=== PATIENT | female | born 1950 | race Caucasian/White ===

== ENCOUNTER → 2017-06-30 | Outpatient (CLI) | payer MEDICARE ==
--- NOTE | 2017-07-02 09:20 | MM ---
Reason for exam: screening (asymptomatic). Last mammogram was performed 2 years and 1 month ago. History: Patient is postmenopausal. Family history of breast cancer in mother at age 73. Physical Findings: A clinical breast exam by your physician is recommended on an annual basis and results should be correlated with mammographic findings. MG Screening Mammo w CAD Bilateral CC and MLO view(s) were taken. Prior study comparison: May 17, 2015, bilateral MG screening mammo w CAD. March 23, 2014, bilateral MG screening mammo w CAD. The breast tissue is heterogeneously dense. This may lower the sensitivity of mammography. No suspicious abnormality in the left breast. There is a 5.5mm asymmetry 4cm from nipple with the medial right breast at middle depth. ASSESSMENT: Incomplete: need additional imaging evaluation, BI-RAD 0 RECOMMENDATION: Special view mammogram of the right breast. If lesion persists on supplemental views, image directed ultrasound is recommended. [facility] will attempt to contact patient to return for supplemental views and ultrasound if indicated.
== END | disposition home or self-care (01) ==
LOC: RADMAMWWP 15:43
PROVIDERS: ATTEND Family Medicine
DX: Z12.31 Encounter for screening mammogram for malignant neoplasm of breast (principal)

== ENCOUNTER → 2017-07-07 | Outpatient (CLI) | payer MEDICARE ==
--- NOTE | 2017-07-07 11:03 | MM ---
Reason for exam: additional evaluation requested from abnormal screening. Last mammogram was performed less than 1 month ago. History: Patient is postmenopausal. Family history of breast cancer in mother at age 73. Physical Findings: Nurse did not find any significant physical abnormalities on exam. MG 3D Work Up W/Cad RT LM and spot compression CC view(s) were taken of the right breast. Prior study comparison: June 30, 2017, bilateral MG screening mammo w CAD. May 17, 2015, bilateral MG screening mammo w CAD. March 23, 2014, bilateral MG screening mammo w CAD. There are scattered fibroglandular densities. The questioned medial asymmetry disperses on 3D spot view. These results were verbally communicated with the patient and result sheet given to the patient on 07/07/17. ASSESSMENT: Negative, BI-RAD 1 RECOMMENDATION: Routine screening mammogram of both breasts in 1 year.
== END | disposition home or self-care (01) ==
LOC: RADMAMWWP 10:18
PROVIDERS: ATTEND Family Medicine
DX: R92.8 Other abnormal and inconclusive findings on diagnostic imaging of breast (principal)
CPT/HCPCS: G0206; G0279

== ENCOUNTER → 2018-07-16 | Outpatient (CLI) | payer MEDICARE ==
--- NOTE | 2018-07-17 09:43 | MM ---
Reason for exam: screening (asymptomatic). Last mammogram was performed 1 year ago. History: Patient is postmenopausal. Family history of breast cancer in mother at age 73. Physical Findings: A clinical breast exam by your physician is recommended on an annual basis and results should be correlated with mammographic findings. MG 3D Screening Mammo W/Cad Bilateral CC and MLO view(s) were taken. Prior study comparison: July 07, 2017, right breast MG 3d work up w/cad RT. June 30, 2017, bilateral MG screening mammo w CAD. The breast tissue is heterogeneously dense. This may lower the sensitivity of mammography. No suspicious abnormality. No significant changes when compared with prior studies. ASSESSMENT: Negative, BI-RAD 1 RECOMMENDATION: Routine screening mammogram of both breasts in 1 year.
== END | disposition home or self-care (01) ==
LOC: RADMAMWWP 16:22
PROVIDERS: ATTEND Family Medicine
DX: Z12.31 Encounter for screening mammogram for malignant neoplasm of breast (principal)
CPT/HCPCS: 77063; 77067

== ENCOUNTER → 2019-07-21 | Outpatient (CLI) | payer MEDICARE ==
--- NOTE | 2019-07-21 12:35 | BD ---
EXAMINATION TYPE: Axial Bone Density DATE OF EXAM: 07/21/2019 COMPARISON: 2011 CLINICAL HISTORY: Z 78.0 Height: 5 FT 1 1/4 IN Weight: 110 FRAX RISK QUESTIONS: Alcohol (3 or more units per day): NO Family History (Parent hip fracture): NO Glucocorticoids (More than 3mos): NO (Ex: prednisone, prednisolone, methylprednisolone, dexamethasone, and hydrocortisone). History of Fracture in Adulthood: NO Secondary Osteoporosis: 1. Type 1 Diabetes: NO 2. Hyperthyroidism: NO 3. Menopause before 45: NO 4. Malnutrition: NO 5. Chronic liver disease: NO Rheumatoid Arthritis: NO Current Tobacco Use: NO RISK FACTORS HISTORY OF: Active: YES Postmenopausal woman: AGE 53 MEDICATIONS: Thyroid Medications: YES Which medication: LEVOTHYROXINE How Long: SINCE 2000 Additional Medications: LEVOTHYROXINE, BLOOD PRESSURE MEDS Additional History: EXAM MEASUREMENTS: Bone mineral densitometry was performed using the [employer] System. Bone mineral density as measured about the Lumbar spine is: ----- L1-L4(G/cm2): 1.214 T Score Values are as follows: ----- L2: -0.2 ----- L3: 0.3 ----- L4: 0.8 ----- L1-L4: 0.3 Bone mineral density has: INCREASED 0.2 % since study of: 2011 Bone mineral density about the R hip (g/cm2): 0.787 Bone mineral density about the L hip (g/cm2): 0.716 T Score values are as follows: -----R Neck: -1.8 -----L Neck: -2.3 -----R Total: -1.5 -----L Total: -1.9 Bone mineral density has: DECREASED -10.1 % since study of: 2011 IMPRESSION: Osteopenia (T Score between -2.5 and -1). There is slightly increased risk of fracture and the patient may be considered for treatment. Re-Screen 2-5 years. NOTE: T-SCORE=SD OF THE YOUNG ADULT MEAN.
--- NOTE | 2019-07-22 10:51 | MM ---
Reason for exam: screening (asymptomatic). Last mammogram was performed 1 year ago. History: Patient is postmenopausal. Family history of breast cancer in mother at age 73. Physical Findings: A clinical breast exam by your physician is recommended on an annual basis and results should be correlated with mammographic findings. MG 3D Screening Mammo W/Cad Bilateral CC and MLO view(s) were taken. Prior study comparison: July 16, 2018, bilateral MG 3d screening mammo w/cad. July 07, 2017, right breast MG 3d work up w/cad RT. The breast tissue is heterogeneously dense. This may lower the sensitivity of mammography. There is no discrete abnormality. No significant changes when compared with prior studies. ASSESSMENT: Negative, BI-RAD 1 RECOMMENDATION: Routine screening mammogram of both breasts in 1 year.
== END | disposition home or self-care (01) ==
LOC: RADMAMWWP 09:40
PROVIDERS: ATTEND Family Medicine
DX: Z12.31 Encounter for screening mammogram for malignant neoplasm of breast (principal); M85.88 Other specified disorders of bone density and structure, other site
CPT/HCPCS: 77063; 77067; 77080

== ENCOUNTER 2022-12-21 22:35 | Inpatient (IN) | payer MEDICARE ==
[2022-12-21] MEDS ORDERED: SODIUM CHLORIDE 0.9% 1,000 ML IV ONE (23:40)
[2022-12-21 23:51] LABS: Basophils % (A) 1 %; Eosinophils # (A) 0.1 k/uL (0-0.7); Eosinophils % (A) 1 %; HCT 45.2 % (34.0-46.0); HGB 14.7 gm/dL (11.4-16.0); Lymphocytes # (A) 1.6 k/uL (1.0-4.8); Lymphocytes % (A) 20 %; MCH 30.5 pg (25.0-35.0); MCHC 32.6 g/dL (31.0-37.0); MCV 93.4 fL (80.0-100.0); Mean Platelet Volume 8.4; Monocytes # (A) 0.4 k/uL (0-1.0); Monocytes % (A) 6 %; Neutrophils # (A) 5.3 k/uL (1.3-7.7); Neutrophils % (A) 69 %; Platelet Count 287 k/uL (150-450); RBC 4.84 m/uL (3.80-5.40); RDW 13.2 % (11.5-15.5); WBC 7.7 k/uL (3.8-10.6)
[2022-12-21 23:53] LABS: ALT 24 U/L (4-34); AST 41 U/L (14-36); African American GFR (CKD) >90 (>60 ml/min/1.73 sqM); Albumin 4.7 g/dL (3.5-5.0); Alkaline Phosphatase 104 U/L (38-126); Anion Gap 9 mmol/L; Blood Urea Nitrogen 10 mg/dL (7-17); Calcium 9.9 mg/dL (8.4-10.2); Carbon Dioxide 31 mmol/L (22-30); Chloride 97 mmol/L (98-107); Glucose 173 mg/dL (74-99); Magnesium 2.1 mg/dL (1.6-2.3); Non-African American GFR(CKD) >90 (>60 ml/min/1.73 sqM); Sodium 137 mmol/L (137-145); Total Bilirubin 0.5 mg/dL (0.2-1.3); Total Protein 8.2 g/dL (6.3-8.2)
--- NOTE | 2022-12-22 00:46 | XR ---
EXAM: XR Chest, 2 Views CLINICAL HISTORY: ITS.REASON XR Reason: CP TECHNIQUE: Frontal and lateral views of the chest. COMPARISON: No previous studies. FINDINGS: Lungs: Mild COPD. Minimal scarring at the lung apices. No consolidative change. Pleural space: Unremarkable. No pneumothorax. No pleural effusions. Heart: Unremarkable. No cardiomegaly. Mediastinum: Unremarkable. Bones/joints: Osteopenia. Normal alignment of the thoracic spine. Vasculature: Atherosclerotic disease of the aortic knob. IMPRESSION: 1. No active disease. 2. No pleural effusions. 3. Atherosclerotic disease. 4. Osteopenia.
--- NOTE | 2022-12-22 02:37 | ED ---
General Adult HPI - General Chief complaint: Arrhythmia/Palpitations Stated complaint: Heart Palptations, anxiety Time Seen by Provider: 12/21/22 23:00 Source: patient Mode of arrival: ambulatory Limitations: no limitations - History of Present Illness Initial comments: This is a 72-year-old female with a past medical history including Crohn's disease presented to the emergency department for palpitations. The patient stated that she woke up today with worsening palpitations and felt as if she was anxious. The patient denied any chest pain or shortness of breath as well as any lightheadedness or dizziness. The patient did state that she has had palpitations before but these seem to be worse today. The patient was otherwise resting in bed comfortably without any acute distress. - Related Data Home Medications Medication Instructions Recorded Confirmed Levothyroxine Sodium [Synthroid] 100 mcg PO DAILY 04/09/15 04/09/15 Terazosin [Hytrin] 5 mg PO HS 04/09/15 04/09/15 Triamterene-Hctz 37.5-25Mg 1 each PO DAILY 04/09/15 04/09/15 [Dyazide] Previous Rx's Medication Instructions Recorded Potassium Chloride ER [K-Dur 20] 20 meq PO DAILY #14 tab 04/09/15 Allergies Allergy/AdvReac Type Severity Reaction Status Date / Time amlodipine Allergy Unknown Verified 04/09/15 03:21 losartan potassium Allergy Unknown Verified 04/09/15 03:21 [From Cozaar] propranolol HCl Allergy Unknown Verified 04/09/15 03:21 [From InnoPran XL] Review of Systems ROS Statement: Those systems with pertinent positive or pertinent negative responses have been documented in the HPI. ROS Other: All systems not noted in ROS Statement are negative. Past Medical History Past Medical History: Hypertension, Thyroid Disorder Additional Past Medical History / Comment(s): crohns History of Any Multi-Drug Resistant Organisms: None Reported Past Surgical History: Bowel Resection Past Psychological History: No Psychological Hx Reported Smoking Status: Never smoker Past Alcohol Use History: None Reported Past Drug Use History: None Reported General Exam Limitations: no limitations General appearance: alert, in no apparent distress Head exam: Present: atraumatic, normocephalic, normal inspection Eye exam: Present: normal appearance, PERRL Pupils: Present: normal accommodation ENT exam: Present: normal exam, normal oropharynx, mucous membranes moist Neck exam: Present: normal inspection, full ROM Respiratory exam: Present: normal lung sounds bilaterally Cardiovascular Exam: Present: normal rhythm, tachycardia GI/Abdominal exam: Present: soft, normal bowel sounds Extremities exam: Present: normal inspection, full ROM Back exam: Present: normal inspection, full ROM Neurological exam: Present: alert, oriented X3, CN II-XII intact Psychiatric exam: Present: normal affect, normal mood Skin exam: Present: warm, dry Course Vital Signs 12/21/22 12/21/22 12/21/22 22:46 23:20 23:32 Temperature 97.7 F Pulse Rate 150 H 165 H 154 H Respiratory 18 20 20 Rate Blood Pressure 214/107 210/141 O2 Sat by Pulse 98 98 98 Oximetry 12/22/22 12/22/22 00:00 00:57 Temperature Pulse Rate 103 H 86 Respiratory 16 16 Rate Blood Pressure 233/116 O2 Sat by Pulse 97 98 Oximetry EKG Findings - EKG Comments: EKG Findings:: In EKG was obtained and was interpreted by myself showing a rate of 90, MS interval of 181, QRS duration of 87 and QTC of 383. This EKG showed a normal sinus rhythm with no ST segment elevation or depression noted. While the patient was being evaluated by the nurse, he did notice that the patient's heart rate did change in a second EKG was obtained. This second EKG was interpreted by myself showing a rate of 156, MS interval 126, QRS duration of 87 and QTC of 331. This EKG did show a sinus tachycardia however there was minor concerns for diffuse ST segment depressions. There was not significant criteria for a STEMI at this time. The patient did not complain of any pain or distress. Medical Decision Making - Medical Decision Making Was pt. sent in by a medical professional or institution (, PA, BALL WARPER TENDER, urgent care, hospital, or halfway...) When possible be specific @ -No Did you speak to anyone other than the patient for history (EMS, parent, family, police, friend...)? What history was obtained from this source @ -No Did you review nursing and triage notes (agree or disagree)? Why? @ -I reviewed and agree with nursing and triage notes Were old charts reviewed (outside hosp., previous admission, EMS record, old EKG, old radiological studies, urgent care reports/EKG's, halfway records)? Report findings @ -No old charts were reviewed Differential Diagnosis (chest pain, altered mental status, abdominal pain women, abdominal pain men, vaginal bleeding, weakness, fever, dyspnea, syncope, headache, dizziness, GI bleed, back pain, seizure, CVA, palpatations, mental health)? @ -Tachycardia, palpitations, dehydration, pneumonia, STEMI, NSTEMI EKG interpreted by me (3pts min.). @ -As above X-rays interpreted by me (1pt min.). @ -Chest x-ray was obtained and was reviewed by myself showing no active disease and no pleural effusions. CT interpreted by me (1pt min.). @ -None done U/S interpreted by me (1pt. min.). @ -None done What testing was considered but not performed or refused? (CT, X-rays, U/S, labs)? Why? @ -None What meds were considered but not given or refused? Why? @ -None Did you discuss the management of the patient with other professionals (professionals i.e. , PA, BALL WARPER TENDER, lab, RT, psych nurse, oncology social worker, crime scene evidence technician, teacher, helicopter officer, case repairer)? Give summary @ -Yes, admitting team was contacted regarding admission Was smoking cessation discussed for >3mins.? @ -No Was critical care preformed (if so, how long)? @ -No Were there social determinants of health that impacted care today? How? (Homelessness, low income, unemployed, alcoholism, drug addiction, transportation, low edu. Level, literacy, decrease access to med. care, custodial, rehab)? @ -No Was there de-escalation of care discussed even if they declined (Discuss DNR or withdrawal of care, Hospice)? DNR status @ -No What co-morbidities impacted this encounter? (DM, HTN, Smoking, COPD, CAD, Cancer, CVA, ARF, Chemo, Hep., AIDS, mental health diagnosis, sleep apnea, morbid obesity)? @ -Crohn's disease Was patient admitted / discharged? Hospital course, mention meds given and route, prescriptions, significant lab abnormalities, going to OR and other pertinent info. @ -The patient was seen and evaluated emergency department. On physical exam, the patient was resting in bed however during my evaluation had an episode of sustained sinus tachycardia. Once I left the room, the patient's heart rate did decrease to a normal sinus rhythm. The patient's blood pressure did remain elevated. Due to the patient's complaints and palpitations, laboratory workup was obtained and was significant for an elevated troponin. Due to the patient's palpitations and elevated blood pressure in the setting of elevated troponin, the patient likely suffering an NSTEMI and will be started on IV heparin. Due to these findings, the patient will be admitted for further workup and evaluation. The patient was agreeable to this and all her questions were answered. The patient was admitted in stable condition. Undiagnosed new problem with uncertain prognosis? @ -No Drug Therapy requiring intensive monitoring for toxicity (Heparin, Nitro, Insulin, Cardizem)? @ -Yes, heparin Were any procedures done? @ -No Diagnosis/symptom? @ -NSTEMI, hypertension Acute, or Chronic, or Acute on Chronic? @ -Acute Uncomplicated (without systemic symptoms) or Complicated (systemic symptoms)? @ -Complicated Side effects of treatment? @ -No Exacerbation, Progression, or Severe Exacerbation? @ -No Poses a threat to life or bodily function? How? (Chest pain, [place], [place], pneumonia, PE, COPD, DKA, ARF, appy, cholecystitis, CVA, Diverticulitis, Homicidal, Suicidal, threat to staff... and all critical care pts) @ -Yes, continued NSTEMI can cause worsening and permanent cardiac damage and possible . - Lab Data Result diagrams: 12/21/22 23:22 12/21/22 23:22 Lab Results 12/21/22 12/21/22 12/21/22 Range/Units 23:22 23:22 23:22 WBC 7.7 (3.8-10.6) k/uL RBC 4.84 (3.80-5.40) m/uL Hgb 14.7 (11.4-16.0) gm/dL Hct 45.2 (34.0-46.0) % MCV 93.4 (80.0-100.0) fL MCH 30.5 (25.0-35.0) pg MCHC 32.6 (31.0-37.0) g/dL RDW 13.2 (11.5-15.5) % Plt Count 287 (150-450) k/uL MPV 8.4 Neutrophils % 69 % Lymphocytes % 20 % Monocytes % 6 % Eosinophils % 1 % Basophils % 1 % Neutrophils # 5.3 (1.3-7.7) k/uL Lymphocytes # 1.6 (1.0-4.8) k/uL Monocytes # 0.4 (0-1.0) k/uL Eosinophils # 0.1 (0-0.7) k/uL Basophils # 0.0 (0-0.2) k/uL D-Dimer (<0.60) mg/L FEU Sodium 137 (137-145) mmol/L Potassium 4.0 (3.5-5.1) mmol/L Chloride 97 L (98-107) mmol/L Carbon Dioxide 31 H (22-30) mmol/L Anion Gap 9 mmol/L BUN 10 (7-17) mg/dL Creatinine 0.50 L (0.52-1.04) mg/dL Est GFR (CKD-EPI)AfAm >90 (>60 ml/min/1.73 sqM) Est GFR (CKD-EPI)NonAf >90 (>60 ml/min/1.73 sqM) Glucose 173 H (74-99) mg/dL Calcium 9.9 (8.4-10.2) mg/dL Magnesium 2.1 (1.6-2.3) mg/dL Total Bilirubin 0.5 (0.2-1.3) mg/dL AST 41 H (14-36) U/L ALT 24 (4-34) U/L Alkaline Phosphatase 104 (38-126) U/L Troponin I 0.072 H* (0.000-0.034) ng/mL NT-Pro-B Natriuret Pep pg/mL Total Protein 8.2 (6.3-8.2) g/dL Albumin 4.7 (3.5-5.0) g/dL 12/21/22 12/22/22 Range/Units 23:22 00:28 WBC (3.8-10.6) k/uL RBC (3.80-5.40) m/uL Hgb (11.4-16.0) gm/dL Hct (34.0-46.0) % MCV (80.0-100.0) fL MCH (25.0-35.0) pg MCHC (31.0-37.0) g/dL RDW (11.5-15.5) % Plt Count (150-450) k/uL MPV Neutrophils % % Lymphocytes % % Monocytes % % Eosinophils % % Basophils % % Neutrophils # (1.3-7.7) k/uL Lymphocytes # (1.0-4.8) k/uL Monocytes # (0-1.0) k/uL Eosinophils # (0-0.7) k/uL Basophils # (0-0.2) k/uL D-Dimer 0.42 (<0.60) mg/L FEU Sodium (137-145) mmol/L Potassium (3.5-5.1) mmol/L Chloride (98-107) mmol/L Carbon Dioxide (22-30) mmol/L Anion Gap mmol/L BUN (7-17) mg/dL Creatinine (0.52-1.04) mg/dL Est GFR (CKD-EPI)AfAm (>60 ml/min/1.73 sqM) Est GFR (CKD-EPI)NonAf (>60 ml/min/1.73 sqM) Glucose (74-99) mg/dL Calcium (8.4-10.2) mg/dL Magnesium (1.6-2.3) mg/dL Total Bilirubin (0.2-1.3) mg/dL AST (14-36) U/L ALT (4-34) U/L Alkaline Phosphatase (38-126) U/L Troponin I (0.000-0.034) ng/mL NT-Pro-B Natriuret Pep 405 pg/mL Total Protein (6.3-8.2) g/dL Albumin (3.5-5.0) g/dL Disposition Clinical Impression: NSTEMI (non-ST elevated myocardial infarction) Disposition: ADMITTED IP TO THIS HOSP Condition: Stable Is patient prescribed a controlled substance at d/c from ED?: No Referrals: Lynette Garcia [Primary Care Provider] - 1-2 days Time of Disposition: 01:30 Decision to Admit Reason: Admit from EC Decision Date: 12/22/22 Decision Time: 01:30
[2022-12-22] MEDS ORDERED: LABETALOL 5 MG/ML VIAL MDV IVP STA ×2 (02:40→04:03)
[2022-12-22] MEDS ORDERED: HEPARIN SODIUM 1,000 UN/ML (10ML VL) IV PRN (02:40)
[2022-12-22] MEDS ORDERED: HEPARIN SODIUM 1,000 UN/ML (10ML VL) IV ONE (02:40)
[2022-12-22] MEDS ORDERED: NALOXONE 0.4 MG/ML 1 ML VIAL IV PRN (02:41)
[2022-12-22] MEDS ORDERED: SODIUM CHLORIDE 0.9% 1,000 ML IV SCH (02:45)
[2022-12-22] MEDS: HEPARIN SOD,PORK IN 0.45% NACL 25,000 UNIT in 0.45% NACL 1 250ML.BAG IV SCH (03:04)
[2022-12-22 03:27] LABS: Partial Thromboplastin Time 25.3 sec (22.0-30.0); Prothrombin Time 10.3 sec (9.0-12.0)
[2022-12-22] MEDS ORDERED: LEVOTHYROXINE 112 MCG TAB PO SCH (08:48)
[2022-12-22] MEDS ORDERED: DEXTROSE 50% SYRINGE 50 ML IVP PRN ×2 (08:49)
[2022-12-22] MEDS ORDERED: ONDANSETRON 4 MG/2 ML VIAL IVP PRN (08:50)
[2022-12-22 09:24] LABS: Glucose,Whole Blood 89 mg/dL (70-110)
[2022-12-22] MEDS: FAMOTIDINE 20 MG TAB PO SCH ×3 (09:25→21:08)
[2022-12-22] MEDS: hydrALAZINE HCL 20 MG/ML 1 ML VIAL IVP PRN ×2 (09:28→21:04)
[2022-12-22] MEDS: ACETAMINOPHEN TAB 325 MG TAB PO PRN ×2 (09:35→22:38)
[2022-12-22 11:39] LABS: Glucose,Whole Blood 98 mg/dL (70-110)
[2022-12-22] MEDS: METOPROLOL TARTRATE 25 MG TAB PO SCH ×2 (11:39→21:04)
[2022-12-22] MEDS: INSULIN ASPART (NovoLOG) 100 UNIT/ML VIAL SQ SCH ×3 (11:52→21:03)
[2022-12-22 12:09] LABS: T4, Free (Free Thyroxine) 1.03 ng/dL (0.78-2.19)
[2022-12-22] MEDS: LOSARTAN 50 MG TAB PO SCH (13:44)
--- NOTE | 2022-12-22 14:06 | P.CRDCN ---
History of Present Illness Consult date: 12/22/22 Reason for Consult (text): Palpitations History of present illness: This is Dane Sapp NP, I'm dictating on behalf of Dr. Ray's H&P and A&P The patient was interviewed and examined. HPI: Patient is a pleasant 72-year-old female who presented to the hospital with palpitations. Patient reports she started feeling palpitations around 9pm last night. She has had occasional palpitations in the past that only lasted a few seconds. This episode was persistent, and was not slowing down. Patient had no shortness of breath, chest pain, or dizziness associated with her palpitations. She woke her up and asked him to take her to the clinic. The clinic was closed, so the patient was brought to the hospital. In the ER, the patient was found initially to be in sinus rhythm with a normal HR, but quickly started having palpitations again, which on EKG look like atrial tachycardia/afib. Patients blood pressure was significantly elevated on arrival. She was given multiple doses of labetolol and hydralazine with some improvement in her blood pressure. Patient demonstrated a increase in her troponin, and was started on heparin. She has a past medical history pertinent for Hypertension and Hypothyroidism. ROS: [No fever, chills, or rigors] [no cough, phlegm, or expectoration] [no nausea, vomiting, or diarrhea] [no hematuria, dysuria] [no musculoskelatal complaints] [no strokes or seizures] [no skin lesions] EXAMINATION: GENERAL: Well-appearing, well-nourished and in no acute distress. NECK: Supple without JVD or thyromegaly. LUNGS: Breath sounds clear to auscultation bilaterally. Respiration equal and unlabored. No wheezes, rales or rhonchi. HEART: Regular rate and rhythm without murmurs, rubs or gallops. S1 and S2 heard. EXTREMITIES: Normal range of motion, no edema. No clubbing or cyanosis. Periph eral pulses intact and strong. REVIEW OF LABS, ECG & MEDICAL DATA: LABS: White count 7.7, hemoglobin 14.7, platelets 287, PT 10.3, INR 1.0, d-dimer 0.42, sodium 137, potassium 4.0, chloride 97, B1 10, creatinine 0.50, hemoglobin A1c 5.4, calcium 9.9, magnesium 2.1, troponin-0.072, 0.133, 0.138, BNP 405, TSH 6.15, free T4 1.03 EKG: Atrial tachycardia/atrial fibrillation with rapid ventricular response IMAGING: Chest x-ray dated 12/22/2022 demonstrates no active disease, no pleural effusions, atherosclerotic disease, and osteopenia. VITALS: Pulse 69, respirations 20, blood pressure 160/78, O2 saturation 97% on room air IMPRESSION: 1. 2:1 Atrial Tachycardia/Afib, on EKG 2. Hypertension, uncontrolled 3. Hypothyroidism PLAN: Check TSH, HgbA1c, Lipid Panel. TSH is elevated, will increase levothyroxine to 125 g daily. Echocardiogram. Goal at the moment is blood pressure control. Start metoprolol 25mg BID. Start Losartan 50mg daily. Aware of patient reported allergies to propanolol and losartan. Patient cannot remember reaction to either medication. Will trial and observe. Elevated troponin secondary to excessively high heart rate and demand ischemia. Further recommendations based on patients clinical course. Thank you for the consult and allowing us to participate in the care of this patient. Past Medical History Past Medical History: Hypertension, Thyroid Disorder Additional Past Medical History / Comment(s): crohns History of Any Multi-Drug Resistant Organisms: None Reported Past Surgical History: Bowel Resection Past Psychological History: No Psychological Hx Reported Smoking Status: Never smoker Past Alcohol Use History: None Reported Past Drug Use History: None Reported Medications and Allergies Home Medications Medication Instructions Recorded Confirmed Type Levothyroxine Sodium [Synthroid] 112 mcg PO DAILY 12/22/22 12/22/22 History Allergies Allergy/AdvReac Type Severity Reaction Status Date / Time amlodipine Allergy Unknown Verified 12/22/22 11:51 propranolol HCl Allergy Unknown Verified 12/22/22 11:51 [From InnoPran XL] losartan potassium AdvReac Lethargic, Verified 12/22/22 11:51 [From Cozaar] weakness Physical Exam Vitals: Vital Signs Temp Pulse Resp BP Pulse Ox 12/22/22 11:00 67 18 164/73 97 12/22/22 10:21 65 18 156/69 98 12/22/22 09:49 69 20 168/78 97 12/22/22 09:37 65 18 207/97 12/22/22 09:27 63 18 215/96 99 12/22/22 09:00 216/96 12/22/22 08:17 62 18 211/102 98 12/22/22 04:49 61 14 168/81 98 12/22/22 04:00 66 18 200/95 98 12/22/22 03:52 68 18 188/94 97 12/22/22 03:32 66 192/102 12/22/22 03:00 79 18 254/119 98 12/22/22 00:57 86 16 98 12/22/22 00:00 103 H 16 233/116 97 12/21/22 23:32 154 H 20 210/141 98 12/21/22 23:20 165 H 20 98 12/21/22 22:46 97.7 F 150 H 18 214/107 98 Intake and Output 12/21/22 12/22/22 12/22/22 22:59 06:59 14:59 Intake Total 45.854 Balance 45.854 Intake: Intake, IV Titration 45.854 Amount Heparin Sod,Pork in 0.45% 45.854 NaCl 25,000 unit In 0.45 % NaCl 1 250ml.bag @ 12 UNITS/KG/HR 5.661 mls/hr IV .Q24H [facility] Rx#: [id number] Other: Weight 47.174 kg Results 12/21/22 23:22 12/21/22 23:22 Cardiac Enzymes 12/21/22 12/21/22 12/22/22 Range/Units 23:22 23:22 02:58 AST 41 H (14-36) U/L Troponin I 0.072 H* 0.133 H* (0.000-0.034) ng/mL 12/22/22 Range/Units 05:31 AST (14-36) U/L Troponin I 0.138 H* (0.000-0.034) ng/mL Coagulation 12/22/22 12/22/22 Range/Units 02:58 09:35 PT 10.3 (9.0-12.0) sec APTT 25.3 96.2 H (22.0-30.0) sec CBC 12/21/22 Range/Units 23:22 WBC 7.7 (3.8-10.6) k/uL RBC 4.84 (3.80-5.40) m/uL Hgb 14.7 (11.4-16.0) gm/dL Hct 45.2 (34.0-46.0) % Plt Count 287 (150-450) k/uL Comprehensive Metabolic Panel 12/21/22 Range/Units 23:22 Sodium 137 (137-145) mmol/L Potassium 4.0 (3.5-5.1) mmol/L Chloride 97 L (98-107) mmol/L Carbon Dioxide 31 H (22-30) mmol/L BUN 10 (7-17) mg/dL Creatinine 0.50 L (0.52-1.04) mg/dL Glucose 173 H (74-99) mg/dL Calcium 9.9 (8.4-10.2) mg/dL AST 41 H (14-36) U/L ALT 24 (4-34) U/L Alkaline Phosphatase 104 (38-126) U/L Total Protein 8.2 (6.3-8.2) g/dL Albumin 4.7 (3.5-5.0) g/dL Current Medications Generic Name Dose Route Start Last Admin Trade Name Freq PRN Reason Stop Dose Admin Acetaminophen 650 mg 12/22/22 08:50 12/22/22 09:35 Acetaminophen Tab 325 Mg Tab PO 650 mg Q6HR PRN Administration Fever and/ or Pain Dextrose/Water 25 ml 12/22/22 08:49 Dextrose 50% Syringe 50 Ml IVP PER PROTOCOL PRN Hypoglycemia Protocol Dextrose/Water 50 ml 12/22/22 08:49 Dextrose 50% Syringe 50 Ml IVP PER PROTOCOL PRN Hypoglycemia Protocol Famotidine 20 mg 12/22/22 09:00 12/22/22 09:25 Famotidine 20 Mg Tab PO Not Given BID [facility] Heparin Sodium (Porcine) 0 unit 12/22/22 02:40 Heparin Sodium 1,000 Un/Ml (10ml Vl) IV PER PROTOCOL PRN Low PTT Protocol Hydralazine HCl 10 mg 12/22/22 08:50 12/22/22 09:28 Hydralazine Hcl 20 Mg/Ml 1 Ml Vial IVP 10 mg Q6HR PRN Administration Blood Pressure - High Heparin Sodium/Sodium Chloride 250 mls @ 5.661 mls/hr 12/22/22 02:45 12/22/22 11:10 25,000 unit/ Sodium Chloride IV 10 units/kg/hr .Q24H [facility] 4.717 mls/hr Titration Protocol 12 UNITS/KG/HR Insulin Aspart 0 unit 12/22/22 12:30 Insulin Aspart (Novolog) 100 Unit/Ml Vial SQ ACHS [facility] Protocol Levothyroxine Sodium 112 mcg 12/22/22 08:48 12/22/22 09:25 Levothyroxine 112 Mcg Tab PO 112 mcg DAILY@0630 [facility] Administration Losartan Potassium 50 mg 12/22/22 11:30 Losartan 50 Mg Tab PO DAILY [facility] Metoprolol Tartrate 25 mg 12/22/22 11:15 Metoprolol Tartrate 25 Mg Tab PO BID [facility] Naloxone HCl 0.2 mg 12/22/22 02:41 Naloxone 0.4 Mg/Ml 1 Ml Vial IV Q2M PRN Opioid Reversal Ondansetron HCl 4 mg 12/22/22 08:50 Ondansetron 4 Mg/2 Ml Vial IVP Q6HR PRN Nausea And Vomiting Intake and Output 12/21/22 12/22/22 12/22/22 22:59 06:59 14:59 Intake Total 45.854 Balance 45.854 Intake: Intake, IV Titration 45.854 Amount Heparin Sod,Pork in 0.45% 45.854 NaCl 25,000 unit In 0.45 % NaCl 1 250ml.bag @ 12 UNITS/KG/HR 5.661 mls/hr IV .Q24H [facility] Rx#: [id number] Other: Weight 47.174 kg 12/21/22 23:22 12/21/22 23:22
--- NOTE | 2022-12-22 15:54 | P.HPIM ---
History of Present Illness H&P Date: 12/22/22 This is a 72 year old female with medical history of hypertension, hypothyroidism. Presents to the hospital due to palpitations and feeling of heart racing. Denies associated chest pain, no shortness of breath. No dizziness, or lightheadedness. Denies history of cardiac arryhthmia. Patient states around 10 pm last night her heart began to race and patient began to feel anxious. Attempted to go to urgent care however it was closed. Patient came to the [facility] for evaluation. Noted that patients older sister 1 year ago on 12/08/21 and reports feeling increased stress due to the recent 1 year anniversary of her sisters passing. Additionally, her recently had surgery and is usually in good health and this has placed additional stress on her. Initial work up reveals sinus rhythm heart rate of 90 on EKG. A second EKG showing ectopic atrial tachycardia possible atrial flutter with heart rate of 156. Patient also had a blood pressure of 214/107 on admission. Afebrile and on room air. Patient does have listed allergy to amlodipine, propanolol and losartan. Patient had received IV labetolol x 2 doses in the [facility]. Blood pressure did improved to 130s systolic initially however back up to the 200s systolic this morning. Patient received IV hydralazine with improvement in blood pre ssure. Patient did have troponin elevation at 0.072, 0.133 and 0.138. TSH is elevated at 6.150, free T4 is 1.03. Patient has been started on IV heparin with cardiology consultation. Echocardiogram has been ordered. REVIEW OF SYSTEMS: CONSTITUTIONAL: No fever, no malaise, no fatigue. HEENT: No recent visual problems or hearing problems. Denied any sore throat. CARDIOVASCULAR: No chest pain, orthopnea, PND, Reports palpitations and heart racing PULMONARY: No shortness of breath, no cough, no hemoptysis. GASTROINTESTINAL: No diarrhea, no nausea, no vomiting, no abdominal pain. NEUROLOGICAL: No headaches, no weakness, no numbness. Reports anxiety HEMATOLOGICAL: Denies any bleeding or petechiae. GENITOURINARY: Denies any burning micturition, frequency, or urgency. MUSCULOSKELETAL/RHEUMATOLOGICAL: Denies any joint pain, swelling, or any muscle pain. ENDOCRINE: Denies any polyuria or polydipsia. The rest of the 14-point review of systems is negative. PHYSICAL EXAMINATION: GENERAL: The patient is alert and oriented x3, not in any acute distress. Well developed, well nourished. HEENT: Pupils are round and equally reacting to light. EOMI. No scleral icterus. No conjunctival pallor. Normocephalic, atraumatic. No pharyngeal erythema. No thyromegaly. CARDIOVASCULAR: S1 and S2 present. No murmurs, rubs, or gallops. PULMONARY: Chest is clear to auscultation, no wheezing or crackles. ABDOMEN: Soft, nontender, nondistended, normoactive bowel sounds. No palpable organomegaly. MUSCULOSKELETAL: No joint swelling or deformity. EXTREMITIES: No cyanosis, clubbing, or pedal edema. NEUROLOGICAL: Gross neurological examination did not reveal any focal deficits. SKIN: No rashes. Assessment and Plan Assessment Palpitations secondary to new onset atrial tachycardia/atrial fibrillation Hypothyroidism with TSH of 6.150 Troponin elevation Hypertension with urgency on admission treated with IV labetolol and IV hydralazine History of Chron's and bowel resection Anxiety and increased life stressors GI prophylaxis DVT prophylaxis on IV heparin Full Code Plan Cardiology consultation Patient has been started on IV heparin and will be transitioned to oral anticoagulation Started on losartan and metoprolol Synthroid has been increased Pending echocardiogram and lipid panel Continue cardiac monitoring The impression and plan of care has been dictated by Kiki Smith Nurse Practitioner as directed. Dr. Ramila MD I have performed a history and physical examination and medical decision making of this patient, discussed the same with the dictator, and agree with the dictators assessment and plan as written, documented as a scribe. Based on total visit time, I have performed more than 50% of this visit. Past Medical History Past Medical History: Hypertension, Thyroid Disorder Additional Past Medical History / Comment(s): crohns History of Any Multi-Drug Resistant Organisms: None Reported Past Surgical History: Bowel Resection Past Psychological History: No Psychological Hx Reported Smoking Status: Never smoker Past Alcohol Use History: None Reported Past Drug Use History: None Reported Medications and Allergies Home Medications Medication Instructions Recorded Confirmed Type Levothyroxine Sodium [Synthroid] 112 mcg PO DAILY 12/22/22 12/22/22 History Allergies Allergy/AdvReac Type Severity Reaction Status Date / Time amlodipine Allergy Unknown Verified 12/22/22 11:51 propranolol HCl Allergy Unknown Verified 12/22/22 11:51 [From InnoPran XL] losartan potassium AdvReac Lethargic, Verified 12/22/22 11:51 [From Cozaar] weakness Physical Exam Vitals: Vital Signs Temp Pulse Resp BP Pulse Ox 12/22/22 14:14 60 18 152/65 100 12/22/22 13:43 60 18 164/67 97 12/22/22 11:23 176/72 12/22/22 11:00 67 18 164/73 97 12/22/22 10:21 65 18 156/69 98 12/22/22 09:49 69 20 168/78 97 12/22/22 09:37 65 18 207/97 12/22/22 09:27 63 18 215/96 99 12/22/22 09:00 216/96 12/22/22 08:17 62 18 211/102 98 12/22/22 04:49 61 14 168/81 98 12/22/22 04:00 66 18 200/95 98 12/22/22 03:52 68 18 188/94 97 12/22/22 03:32 66 192/102 12/22/22 03:00 79 18 254/119 98 12/22/22 00:57 86 16 98 12/22/22 00:00 103 H 16 233/116 97 12/21/22 23:32 154 H 20 210/141 98 12/21/22 23:20 165 H 20 98 12/21/22 22:46 97.7 F 150 H 18 214/107 98 Intake and Output 12/22/22 12/22/22 12/22/22 06:59 14:59 22:59 Intake Total 45.854 Balance 45.854 Intake: Intake, IV Titration 45.854 Amount Heparin Sod,Pork in 0.45% 45.854 NaCl 25,000 unit In 0.45 % NaCl 1 250ml.bag @ 12 UNITS/KG/HR 5.661 mls/hr IV .Q24H [facility] Rx#: [id number] Results CBC & Chem 7: 12/21/22 23:22 12/21/22 23:22 Labs: Abnormal Lab Results - Last 24 Hours (Table) 12/21/22 12/21/22 12/22/22 Range/Units 23:22 23:22 02:58 APTT (22.0-30.0) sec Chloride 97 L (98-107) mmol/L Carbon Dioxide 31 H (22-30) mmol/L Creatinine 0.50 L (0.52-1.04) mg/dL Glucose 173 H (74-99) mg/dL AST 41 H (14-36) U/L Troponin I 0.072 H* 0.133 H* (0.000-0.034) ng/mL TSH (0.465-4.680) mIU/L 12/22/22 12/22/22 12/22/22 Range/Units 05:31 09:35 09:35 APTT 96.2 H (22.0-30.0) sec Chloride (98-107) mmol/L Carbon Dioxide (22-30) mmol/L Creatinine (0.52-1.04) mg/dL Glucose (74-99) mg/dL AST (14-36) U/L Troponin I 0.138 H* (0.000-0.034) ng/mL TSH 6.150 H (0.465-4.680) mIU/L Assessment and Plan Time with Patient: Less than 30
[2022-12-22 16:59] LABS: Glucose,Whole Blood 98 mg/dL (70-110)
[2022-12-22 20:55] LABS: Glucose,Whole Blood 85 mg/dL (70-110)
[2022-12-22 21:03] LABS: LDL Cholesterol,Calculated 87.8 mg/dL (0.0-131.0)
[2022-12-23] MEDS: HEPARIN SOD,PORK IN 0.45% NACL 25,000 UNIT in 0.45% NACL 1 250ML.BAG IV SCH (02:00)
[2022-12-23] MEDS: hydrALAZINE HCL 20 MG/ML 1 ML VIAL IVP PRN (05:23)
[2022-12-23 05:42] LABS: Glucose,Whole Blood 85 mg/dL (70-110)
[2022-12-23] MEDS: INSULIN ASPART (NovoLOG) 100 UNIT/ML VIAL SQ SCH ×2 (06:09→11:31)
[2022-12-23] MEDS ORDERED: LEVOTHYROXINE 125 MCG TAB PO SCH (06:30)
[2022-12-23 07:17] LABS: Partial Thromboplastin Time 48.6 sec (22.0-30.0); Prothrombin Time 10.7 sec (9.0-12.0)
[2022-12-23 07:19] LABS: Basophils % (A) 1 %; Eosinophils # (A) 0.1 k/uL (0-0.7); Eosinophils % (A) 3 %; HCT 39.2 % (34.0-46.0); HGB 12.7 gm/dL (11.4-16.0); Lymphocytes # (A) 1.3 k/uL (1.0-4.8); Lymphocytes % (A) 28 %; MCH 30.8 pg (25.0-35.0); MCHC 32.5 g/dL (31.0-37.0); MCV 94.9 fL (80.0-100.0); Mean Platelet Volume 8.3; Monocytes # (A) 0.3 k/uL (0-1.0); Monocytes % (A) 7 %; Neutrophils # (A) 2.6 k/uL (1.3-7.7); Neutrophils % (A) 57 %; Platelet Count 240 k/uL (150-450); RBC 4.13 m/uL (3.80-5.40); RDW 13.4 % (11.5-15.5); WBC 4.5 k/uL (3.8-10.6)
[2022-12-23 07:29] LABS: African American GFR (CKD) >90 (>60 ml/min/1.73 sqM); Anion Gap 7 mmol/L; Blood Urea Nitrogen 12 mg/dL (7-17); Carbon Dioxide 23 mmol/L (22-30); Chloride 106 mmol/L (98-107); Glucose 91 mg/dL (74-99); Non-African American GFR(CKD) >90 (>60 ml/min/1.73 sqM); Potassium 3.8 mmol/L (3.5-5.1); Sodium 136 mmol/L (137-145)
[2022-12-23 08:18] VITALS: RESP 18; TEMP 97.9
[2022-12-23] MEDS: METOPROLOL TARTRATE 25 MG TAB PO SCH (08:19)
[2022-12-23] MEDS: FAMOTIDINE 20 MG TAB PO SCH (08:19)
[2022-12-23] MEDS: LOSARTAN 50 MG TAB PO SCH (08:19)
[2022-12-23] MEDS ORDERED: LOSARTAN 50 MG TAB PO STA (09:11)
[2022-12-23] MEDS ORDERED: APIXABAN 5 MG TAB PO SCH (09:15)
--- NOTE | 2022-12-23 10:33 | CA ---
Transthoracic Echo Report Name: Angelita Berg Age: 72 Gender: F : 1950 Exam Date: 12/23/2022 08:40 Exam Location: [facility] Ht (in): 61 Wt (lb): 104 Ordering Physician: Kiki Smith Attending/Referring Phys: Luis YOUSSEF Folding Machine Operator Irena Null RDCS Procedure CPT: Indications: nstemi Cardiac Hx: Technical Quality: Fair Contrast 1: Total Dose (mL): Contrast 2: Total Dose (mL): MEASUREMENTS (Male / Female) Normal Values 2D ECHO LV Diastolic Diameter PLAX 4.4 cm 4.2 - 5.9 / 3.9 - 5.3 cm LV Systolic Diameter PLAX 1.9 cm IVS Diastolic Thickness 1.2 cm 0.6 - 1.0 / 0.6 - 0.9 cm LVPW Diastolic Thickness 1.2 cm 0.6 - 1.0 / 0.6 - 0.9 cm LV Relative Wall Thickness 0.6 RV Internal Dim ED PLAX 3.3 cm LA Volume 41.0 cm??? 18 - 58 / 22 - 52 cm??? M-MODE Aortic Root Diameter MM 2.8 cm LA Systolic Diameter MM 3.1 cm LA Ao Ratio MM 1.1 AV Cusp Separation MM 1.4 cm DOPPLER AV Peak Velocity 136.7 cm/s AV Peak Gradient 7.5 mmHg AV Mean Velocity 94.9 cm/s AV Mean Gradient 3.9 mmHg AV Velocity Time Integral 33.6 cm LVOT Peak Velocity 101.2 cm/s LVOT Peak Gradient 4.1 mmHg LVOT Velocity Time Integral 23.4 cm MV Area PHT 3.3 cm??? Mitral E Point Velocity 111.8 cm/s Mitral A Point Velocity 71.0 cm/s Mitral E to A Ratio 1.6 MV Deceleration Time 231.8 ms MV E' Velocity 7.0 cm/s Mitral E to MV E' Ratio 16.0 TR Peak Velocity 192.3 cm/s TR Peak Gradient 14.8 mmHg Right Ventricular Systolic Press 19.8 mmHg FINDINGS Left Ventricle Left ventricular cavity size normal. Mildly increased left ventricular wall thickness. Normal left ventricular systolic function with no obvious regional wall motion abnormalities. Left ventricular ejection fraction is estimated at 55-60 %. Right Ventricle Normal right ventricular size and function. Right ventricular systolic pressure within normal limits. Right Atrium Normal right atrial size. Left Atrium Normal left atrial size. Mitral Valve Structurally normal mitral valve. Mild mitral annular calcification. Mild mitral regurgitation. Aortic Valve Trileaflet aortic valve. No aortic valve stenosis or regurgitation. Tricuspid Valve Structurally normal tricuspid valve. Mild tricuspid regurgitation. Pulmonic Valve Structurally normal pulmonic valve. Trace pulmonic regurgitation. Pericardium No pericardial effusion. Aorta Normal size aortic root and proximal ascending aorta. CONCLUSIONS Normal LV size and systolic function. There is mild concentric LVH. There is mild mitral annular calcification with mild mitral regurgitation. Mild tricuspid regurgitation. Aortic valve sclerosis no restriction. No pericardial effusion Previewed by: Dr. Percy Obando MD (Electronically Signed) Final Date: 23 Dec 2022 10:32
[2022-12-23 11:29] LABS: Glucose,Whole Blood 98 mg/dL (70-110)
--- NOTE | 2022-12-23 11:34 | P.PN ---
Subjective Progress Note Date: 12/23/22 HISTORY OF PRESENT ILLNESS: 12/22/2022 HPI: Patient is a pleasant 72-year-old female who presented to the hospital with palpitations. Patient reports she started feeling palpitations around 9pm last night. She has had occasional palpitations in the past that only lasted a few seconds. This episode was persistent, and was not slowing down. Patient had no shortness of breath, chest pain, or dizziness associated with her palpitations. She woke her up and asked him to take her to the clinic. The clinic was closed, so the patient was brought to the hospital. In the ER, the patient was found initially to be in sinus rhythm with a normal HR, but quickly started havi ng palpitations again, which on EKG look like atrial tachycardia/afib. Patients blood pressure was significantly elevated on arrival. She was given multiple doses of labetolol and hydralazine with some improvement in her blood pressure. Patient demonstrated a increase in her troponin, and was started on heparin. She has a past medical history pertinent for Hypertension and Hypothyroidism. 12/23/2022 Patient examined this morning at the bedside. Patient denies chest pain or pressure. She denies shortness of breath. She denies any palpitations. Telemetry reveals sinus mechanism. Echocardiogram completed revealing ejection fraction 55-60% with mild mitral regurgitation PHYSICAL EXAM: VITAL SIGNS: Reviewed. GENERAL: Well-developed in no acute distress. NECK: Supple. No JVD or thyromegaly LUNGS: Respirations even and unlabored. Lungs essentially clear to auscultation bilaterally. HEART: Regular rate and rhythm. S1 and S2 heard. EXTREMITIES: Normal range of motion. No clubbing or cyanosis. Peripheral pulses intact. No lower extremity edema ASSESSMENT: Palpitations New onset atrial fibrillation versus 2-1 atrial tachycardia, currently maintaining sinus mechanism Hypertension, uncontrolled on admission, improving Hypothyroidism PLAN: Discontinue IV heparin. Begin Eliquis. Increase losartan 100 mg daily for optimal blood pressure control Continue additional cardiac medications Patient is currently stable from a cardiac perspective Patient to follow-up post discharge with Dr. Ray Nurse practitioner note has been reviewed by physician. Signing provider agrees with the documented findings, assessment, and plan of care. Objective - Vital Signs Vital signs: Vital Signs Temp 97.9 F 12/23/22 08:15 Pulse 65 12/23/22 09:48 Resp 18 12/23/22 09:48 BP 155/65 12/23/22 08:15 Pulse Ox 96 12/23/22 08:15 FiO2 Intake & Output 12/22/22 12/23/22 12/23/22 18:59 06:59 18:59 Intake Total 163.854 540 0 Balance 163.854 540 0 Weight 47.174 kg Intake: Intake, IV Titration 45.854 Amount Heparin Sod,Pork in 0.45% 45.854 NaCl 25,000 unit In 0.45 % NaCl 1 250ml.bag @ 12 UNITS/KG/HR 5.661 mls/hr IV .Q24H [facility] Rx#: [id number] Oral 118 540 0 Other: Voiding Method Toilet Toilet # Voids 1 - Labs CBC & Chem 7: 12/23/22 06:45 12/23/22 06:45 Labs: Abnormal Lab Results - Last 24 Hours (Table) 12/22/22 12/22/22 12/22/22 Range/Units 09:35 09:35 16:59 APTT 49.1 H (22.0-30.0) sec Sodium (137-145) mmol/L Troponin I (0.000-0.034) ng/mL HDL Cholesterol 68.30 H (40.00-60.00) mg/dL TSH 6.150 H (0.465-4.680) mIU/L 12/23/22 12/23/22 12/23/22 Range/Units 06:45 06:45 06:45 APTT 48.6 H (22.0-30.0) sec Sodium 136 L (137-145) mmol/L Troponin I 0.049 H* (0.000-0.034) ng/mL HDL Cholesterol (40.00-60.00) mg/dL TSH (0.465-4.680) mIU/L
[2022-12-23 11:45] VITALS: BP 167/72; PULSE 63
[2022-12-24] MEDS ORDERED: LOSARTAN 50 MG TAB PO SCH (09:00)
--- NOTE | 2022-12-25 01:44 | P.DS ---
Providers Date of admission: 12/22/22 02:41 Expected date of discharge: 12/23/22 Attending physician: Murtaza Moyer Consults: 12/22/22 02:41 Consult Physician Routine Consulting Provider: [facility] Consult Reason/Comments: NSTEMI Do you want consulting provider notified?: Yes, Notify in am Primary care physician: Lynette Garcia Hospital Course: Final diagnosis Palpitations secondary to new onset atrial tachycardia/atrial fibrillation Hypothyroidism with TSH of 6.150 Troponin elevation likely due to atrial fibrillation, ACS ruled out Hypertension with urgency on admission History of Chrohn's and bowel resection Anxiety and increased life stressors GI prophylaxis DVT prophylaxis Full Code Discharge disposition Patient is being discharged in a stable condition with guarded prognosis to home. Patient will follow-up with Dr. Garcia in the outpatient setting upon discharge. Patient is to continue with current medications as mentioned below including anticoagulant and close outpatient follow-up with cardiology as scheduled. Total time taken is greater than 35 minutes. Hospital course This is a 72-year-old female who was recently admitted with palpitations with no onset atrial fibrillation and being closely monitored. Patient followed closely by cardiology maintained on heparin and started on medications including eliquis Blood pressure medications with recommendations of close outpatient follow-up. Patient has been cleared by cardiology. Please refer to cardiology no for further HPI. Currently no reports of chest pain, shortness of breath, or palpitations. Patient is afebrile. No reports of nausea or vomiting and patient is tolerating diet. Patient will be discharged home today. Physical exam: Gen: This is a 72-year-old female who is awake, alert and oriented 3, thin built, elderly appearing HEENT: Head is atraumatic, normocephalic. Pupils equal, round. Sclerae is anicteric. NECK: Supple. No JVD. No lymphadenopathy. No thyromegaly. LUNGS: Clear to auscultation. No wheezes or rhonchi. No intercostal retractions. HEART S1, S2 are muffled, irregular ABDOMEN: Soft. Bowel sounds are present. No masses. No tenderness. EXTREMITIES: No pedal edema. No calf tenderness. NEUROLOGICAL: Patient is awake, alert and oriented x3. Cranial nerves 2 through 12 are grossly intact. Please refer to medication reconciliation sheet for a list of medications. The impression and plan of care has been dictated by Beryl Lia, Nurse Practitioner as directed. Dr. Ramila MD I have performed a history and examination and MDM of this patient, discussed the same with the dictator, and agree with the dictator's assessment and plan as written ,documented as a scribe. Based on total visit time, I have performed more than 50% of the visit. Patient Condition at Discharge: Stable Plan - Discharge Summary Discharge Rx Participant: Yes New Discharge Prescriptions: New Apixaban [Eliquis] 5 mg PO BID 30 Days #60 tab Losartan [Cozaar] 100 mg PO DAILY #60 tab Metoprolol Tartrate [Lopressor] 25 mg PO BID #60 tab Levothyroxine Sodium [Synthroid] 125 mcg PO DAILY@0630 #30 tab Acetaminophen Tab [Tylenol] 650 mg PO Q6HR PRN tab PRN Reason: Fever And/ Or Pain Discontinued Levothyroxine Sodium [Synthroid] 112 mcg PO DAILY Discharge Medication List Acetaminophen Tab [Tylenol] 650 mg PO Q6HR PRN tab 12/23/22 [Rx] Apixaban [Eliquis] 5 mg PO BID 30 Days #60 tab 12/23/22 [Rx] Levothyroxine Sodium [Synthroid] 125 mcg PO DAILY@0630 #30 tab 12/23/22 [Rx] Losartan [Cozaar] 100 mg PO DAILY #60 tab 12/23/22 [Rx] Metoprolol Tartrate [Lopressor] 25 mg PO BID #60 tab 12/23/22 [Rx] Follow up Appointment(s)/Referral(s): Kaleb Ray MD [STAFF PHYSICIAN] - 2 Weeks (office will call you to make your appointment ) Lynette Garcia [Primary Care Provider] - 1-2 days (please call and make appointment ) Patient Instructions/Handouts: Heart Attack (DC), Heart Palpitations (DC) Activity/Diet/Wound Care/Special Instructions: Okay for discharge once cleared by cardiology Activity Limited until follow-up Follow-up with primary care provider on discharge Continue taking medications as prescribed Follow-up with cardiology in one week Continue to monitor blood pressure daily and keep a diary of all blood pressure readings for follow-up with cardiology and primary care Discharge Disposition: HOME SELF-CARE
== END 2022-12-23 13:52 | disposition home or self-care (01) | DRG 309 ==
LOC: EC 22:35 → 3SCARD 12-22 02:41
PROVIDERS: ADMIT Hospitalist; ATTEND Hospitalist
DX: I48.91 Unspecified atrial fibrillation (principal); K50.90 Crohn's disease, unspecified, without complications; I16.0 Hypertensive urgency; I47.1 Supraventricular tachycardia; Z79.890 Hormone replacement therapy; R77.8 Other specified abnormalities of plasma proteins; Z79.899 Other long term (current) drug therapy; F41.9 Anxiety disorder, unspecified; Z28.310 Unvaccinated for COVID-19; Z28.21 Immunization not carried out because of patient refusal; Z90.49 Acquired absence of other specified parts of digestive tract; Z63.4 Disappearance and death of family member
CPT/HCPCS: 36415; 71046; 80048; 80053; 80061; 83036; 83735; 83880; 84439; 84443; 84484; 85025; 85379; 85610; 85730; 93005; 93306; 96361; 96365; 96366; 96375; 96376; 99285

== ENCOUNTER 2023-01-23 21:17 | Emergency (ER) | payer MEDICARE ==
[2023-01-23 21:25] VITALS: RESP 18; TEMP 97.6
[2023-01-23] MEDS ORDERED: SODIUM CHLORIDE 0.9% 1,000 ML IV STA (21:50)
--- NOTE | 2023-01-23 21:53 | ED ---
General Adult HPI - General Chief complaint: Dizziness Stated complaint: Dizziness Time Seen by Provider: 01/23/23 21:32 Source: EMS Mode of arrival: EMS Limitations: no limitations - History of Present Illness Initial comments: Dictation was produced using [employer] dictation software. please excuse any grammatical, word or spelling errors. Chief Complaint: 72-year-old female with recently diagnosed A. fib presents to emergency department for bout of palpitations History of Present Illness: Patient is 72-year-old female she takes metoprolol and eliquis twice daily. She was diagnosed with A. fib back in December. Patient states she is doing fine. Today she sat down and watch TV and all of a sudden she had a bout of palpitations. She states her palpitations with associated diaphoresis. Last for a couple minutes. She took her metoprolol which improved her symptoms. Patient states she feels nauseated at the bedside. She feels like she is dehydrated and needs IV fluids. The ROS documented in this emergency department record has been reviewed and confirmed by me. Those systems with pertinent positive or negative responses have been documented in the HPI. All other systems are other negative and/or noncontributory. - Related Data Previous Rx's Medication Instructions Recorded Acetaminophen Tab [Tylenol] 650 mg PO Q6HR PRN tab 12/23/22 Apixaban [Eliquis] 5 mg PO BID 30 Days #60 tab 12/23/22 Levothyroxine Sodium [Synthroid] 125 mcg PO DAILY@0630 #30 tab 12/23/22 Losartan [Cozaar] 100 mg PO DAILY #60 tab 12/23/22 Metoprolol Tartrate [Lopressor] 25 mg PO BID #60 tab 12/23/22 Allergies Allergy/AdvReac Type Severity Reaction Status Date / Time amlodipine Allergy Unknown Verified 12/22/22 11:51 propranolol HCl Allergy Unknown Verified 12/22/22 11:51 [From InnoPran XL] losartan potassium AdvReac Lethargic, Verified 12/22/22 11:51 [From Cozaar] weakness Review of Systems ROS Statement: Those systems with pertinent positive or pertinent negative responses have been documented in the HPI. ROS Other: All systems not noted in ROS Statement are negative. Past Medical History Past Medical History: Atrial Fibrillation, Hypertension, Thyroid Disorder Additional Past Medical History / Comment(s): crohns History of Any Multi-Drug Resistant Organisms: None Reported Past Surgical History: Bowel Resection Past Anesthesia/Blood Transfusion Reactions: No Reported Reaction Past Psychological History: No Psychological Hx Reported Smoking Status: Never smoker Past Alcohol Use History: None Reported Past Drug Use History: None Reported - Past Family History Mother Family Medical History: Cancer Additional Family Medical History / Comment(s): of alzheimers Sister(s) Family Medical History: Diabetes Mellitus, Hypertension Father Family Medical History: Diabetes Mellitus, Renal Disease General Exam - General Exam Comments Initial Comments: PHYSICAL EXAM: General Impression: Alert and oriented x3, not in acute distress HEENT: Normocephalic atraumatic, extra-ocular movements intact, pupils equal and reactive to light bilaterally, mucous membranes moist. 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 O2 30, QRS 91, QTC 427. No NE prolongation, no QTC prolongation, no ST or T-wave changes noted.. Overall, this EKG is unremarkable Medical Decision Making - Medical Decision Making Was pt. sent in by a medical professional or institution (, PA, DIRECTOR NEW PRODUCT, urgent care, hospital, or [facility]...) When possible be specific @ -No Did you speak to anyone other than the patient for history (EMS, parent, family, police, friend...)? What history was obtained from this source @ -No Did you review nursing and triage notes (agree or disagree)? Why? @ -I reviewed and agree with nursing and triage notes Were old charts reviewed (outside hosp., previous admission, EMS record, old EKG, old radiological studies, urgent care reports/EKG's, [facility] records)? Report findings @ -Old charts were reviewed including echocardiogram from December of this year showing good ventricular function Differential Diagnosis (chest pain, altered mental status, abdominal pain women, abdominal pain men, vaginal bleeding, musculoskeletal, weakness, fever, dyspnea, syncope, headache, dizziness, GI bleed, back pain, seizure, CVA, palpatations, mental health)? @ - Differential Palpitations: Ventricular arrhythmias, atrial arrhythmias, myocardial infarction, anemia, thyrotoxicosis, electrolyte imbalance, hypokalemia, pulmonary embolism, pulmonary disease, drugs, alcohol, anxiety, stress.... This is not meant to be an all-inclusive list. EKG interpreted by me (3pts min.). @ -See above X-rays interpreted by me (1pt min.). @ -None done CT interpreted by me (1pt min.). @ -None done U/S interpreted by me (1pt. min.). @ -None done What testing was considered but not performed or refused? (CT, X-rays, U/S, labs)? Why? @ -None What meds were considered but not given or refused? Why? @ -None Did you discuss the management of the patient with other professionals (professionals i.e. , PA, DIRECTOR NEW PRODUCT, lab, RT, psych nurse, aids social worker, menswear salesperson, teacher, chief innovation officer, protective services case worker)? Give summary @ -No Was smoking cessation discussed for >3mins.? @ -No Was critical care preformed (if so, how long)? @ -No Were there social determinants of health that impacted care today? How? (Homelessness, low income, unemployed, alcoholism, drug addiction, transportation, low edu. Level, literacy, decrease access to med. care, shelter, rehab)? @ -No Was there de-escalation of care discussed even if they declined (Discuss DNR or withdrawal of care, Hospice)? DNR status @ -No What co-morbidities impacted this encounter? (DM, HTN, Smoking, COPD, CAD, Cancer, CVA, ARF, Chemo, Hep., AIDS, mental health diagnosis, sleep apnea, morbid obesity)? @ -None Was patient admitted / discharged? Hospital course, mention meds given and route, prescriptions, significant lab abnormalities, going to OR and other pertinent info. @ -8-year-old female with recently diagnosed A. fib presents to the ER for p alpitations. Vital signs stable. EKG is unremarkable. Patient placed on quality assurance monitor body. No abnormalities noted. Orthostatic vital signs normal. Labs shows mild hyponatremia 128. Patient given IV fluids. Rest of labs within acceptable limits. Patient be discharged advised follow-up with primary care doctor. Patient told to increase sodium intake in her diet. Undiagnosed new problem with uncertain prognosis? @ -No Drug Therapy requiring intensive monitoring for toxicity (Heparin, Nitro, Insulin, Cardizem)? @ -No Were any procedures done? @ -No Diagnosis/symptom? Acute, or Chronic, or Acute on Chronic? Uncomplicated (without systemic symptoms) or Complicated (systemic symptoms)? @ -1. Palpitations Side effects of treatment? @ -No Exacerbation, Progression, or Severe Exacerbation? @ -No Poses a threat to life or bodily function? How? (Chest pain, [place], [place], pneumonia, PE, COPD, DKA, ARF, appy, cholecystitis, CVA, Diverticulitis, Homicidal, Suicidal, threat to staff... and all critical care pts) @ -yes - Lab Data Result diagrams: 01/23/23 21:49 01/23/23 21:49 Lab Results 01/23/23 01/23/23 01/23/23 Range/Units 21:49 21:49 21:49 WBC 5.2 (3.8-10.6) k/uL RBC 3.75 L (3.80-5.40) m/uL Hgb 11.8 (11.4-16.0) gm/dL Hct 34.8 (34.0-46.0) % MCV 92.9 (80.0-100.0) fL MCH 31.5 (25.0-35.0) pg MCHC 33.9 (31.0-37.0) g/dL RDW 12.4 (11.5-15.5) % Plt Count 248 (150-450) k/uL MPV 8.0 Neutrophils % 49 % Lymphocytes % 35 % Monocytes % 8 % Eosinophils % 3 % Basophils % 1 % Neutrophils # 2.5 (1.3-7.7) k/uL Lymphocytes # 1.8 (1.0-4.8) k/uL Monocytes # 0.4 (0-1.0) k/uL Eosinophils # 0.1 (0-0.7) k/uL Basophils # 0.0 (0-0.2) k/uL PT 10.8 (9.0-12.0) sec INR 1.0 (<1.2) APTT 26.8 (22.0-30.0) sec Sodium 128 L (137-145) mmol/L Potassium 3.7 (3.5-5.1) mmol/L Chloride 98 (98-107) mmol/L Carbon Dioxide 21 L (22-30) mmol/L Anion Gap 9 mmol/L BUN 15 (7-17) mg/dL Creatinine 0.49 L (0.52-1.04) mg/dL Est GFR (CKD-EPI)AfAm >90 (>60 ml/min/1.73 sqM) Est GFR (CKD-EPI)NonAf >90 (>60 ml/min/1.73 sqM) Glucose 161 H (74-99) mg/dL Calcium 8.5 (8.4-10.2) mg/dL Magnesium 2.0 (1.6-2.3) mg/dL Total Bilirubin 0.4 (0.2-1.3) mg/dL AST 32 (14-36) U/L ALT 21 (4-34) U/L Alkaline Phosphatase 78 (38-126) U/L Troponin I (0.000-0.034) ng/mL Total Protein 6.7 (6.3-8.2) g/dL Albumin 3.8 (3.5-5.0) g/dL 01/23/23 Range/Units 21:49 WBC (3.8-10.6) k/uL RBC (3.80-5.40) m/uL Hgb (11.4-16.0) gm/dL Hct (34.0-46.0) % MCV (80.0-100.0) fL MCH (25.0-35.0) pg MCHC (31.0-37.0) g/dL RDW (11.5-15.5) % Plt Count (150-450) k/uL MPV Neutrophils % % Lymphocytes % % Monocytes % % Eosinophils % % Basophils % % Neutrophils # (1.3-7.7) k/uL Lymphocytes # (1.0-4.8) k/uL Monocytes # (0-1.0) k/uL Eosinophils # (0-0.7) k/uL Basophils # (0-0.2) k/uL PT (9.0-12.0) sec INR (<1.2) APTT (22.0-30.0) sec Sodium (137-145) mmol/L Potassium (3.5-5.1) mmol/L Chloride (98-107) mmol/L Carbon Dioxide (22-30) mmol/L Anion Gap mmol/L BUN (7-17) mg/dL Creatinine (0.52-1.04) mg/dL Est GFR (CKD-EPI)AfAm (>60 ml/min/1.73 sqM) Est GFR (CKD-EPI)NonAf (>60 ml/min/1.73 sqM) Glucose (74-99) mg/dL Calcium (8.4-10.2) mg/dL Magnesium (1.6-2.3) mg/dL Total Bilirubin (0.2-1.3) mg/dL AST (14-36) U/L ALT (4-34) U/L Alkaline Phosphatase (38-126) U/L Troponin I <0.012 (0.000-0.034) ng/mL Total Protein (6.3-8.2) g/dL Albumin (3.5-5.0) g/dL Disposition Clinical Impression: Palpitations Disposition: HOME SELF-CARE Condition: Good Instructions (If sedation given, give patient instructions): Heart Palpitations (ED) Is patient prescribed a controlled substance at d/c from ED?: No Referrals: Lynette Garcia [Primary Care Provider] - 1-2 days Time of Disposition: 23:36
[2023-01-23 22:13] LABS: Partial Thromboplastin Time 26.8 sec (22.0-30.0); Prothrombin Time 10.8 sec (9.0-12.0)
[2023-01-23 22:26] LABS: Basophils % (A) 1 %; Eosinophils # (A) 0.1 k/uL (0-0.7); Eosinophils % (A) 3 %; HCT 34.8 % (34.0-46.0); HGB 11.8 gm/dL (11.4-16.0); Lymphocytes # (A) 1.8 k/uL (1.0-4.8); Lymphocytes % (A) 35 %; MCH 31.5 pg (25.0-35.0); MCHC 33.9 g/dL (31.0-37.0); MCV 92.9 fL (80.0-100.0); Monocytes # (A) 0.4 k/uL (0-1.0); Monocytes % (A) 8 %; Neutrophils # (A) 2.5 k/uL (1.3-7.7); Neutrophils % (A) 49 %; Platelet Count 248 k/uL (150-450); RBC 3.75 m/uL (3.80-5.40); RDW 12.4 % (11.5-15.5); WBC 5.2 k/uL (3.8-10.6)
[2023-01-23 22:35] LABS: ALT 21 U/L (4-34); AST 32 U/L (14-36); African American GFR (CKD) >90 (>60 ml/min/1.73 sqM); Albumin 3.8 g/dL (3.5-5.0); Alkaline Phosphatase 78 U/L (38-126); Anion Gap 9 mmol/L; Blood Urea Nitrogen 15 mg/dL (7-17); Calcium 8.5 mg/dL (8.4-10.2); Carbon Dioxide 21 mmol/L (22-30); Chloride 98 mmol/L (98-107); Glucose 161 mg/dL (74-99); Non-African American GFR(CKD) >90 (>60 ml/min/1.73 sqM); Potassium 3.7 mmol/L (3.5-5.1); Sodium 128 mmol/L (137-145); Total Bilirubin 0.4 mg/dL (0.2-1.3); Total Protein 6.7 g/dL (6.3-8.2)
[2023-01-23 23:05] VITALS: BP 142/62; PULSE 87
== END 2023-01-24 00:20 | disposition home or self-care (01) ==
LOC: EC 21:17
DX: R00.2 Palpitations (principal); I48.91 Unspecified atrial fibrillation; I10 Essential (primary) hypertension; Z88.6 Allergy status to analgesic agent; Z88.8 Allergy status to other drugs, medicaments and biological substances
CPT/HCPCS: 36415; 80053; 83735; 84484; 85025; 85610; 85730; 93005; 96360; 99285

== ENCOUNTER → 2023-06-11 | Outpatient (CLI) | payer MEDICARE ==
--- NOTE | 2023-06-11 09:21 | US ---
EXAMINATION TYPE: US renal artery duplex complet DATE OF EXAM: 06/11/2023 COMPARISON: NONE CLINICAL INDICATION: Female, 73 years old with history of I70.1, I10 hypertension; HTN MEASUREMENTS: RENAL SIZE: Rt Kidney: 8.8 x 3.8 x 4.1 cm Lt Kidney: 9.9 x 5.2 x 5.0 cm RESISTANCE INDEX Right: 0.64 Left: 0.74 RA/AO RATIO (< 3.5 ) Right: 1.9 Left: 1.9 RA VELOCITY ( < 180 cm/s) Right: 174.1 Left: 172 Normal resistive indices in renal artery to aorta ratios bilaterally. No significantly elevated renal artery velocity. IMPRESSION: No ultrasound evidence for renal artery stenosis.
== END | disposition home or self-care (01) ==
LOC: RADUSWWP 07:55
PROVIDERS: ATTEND Internal Medicine Clinical Cardiac Electrophysiology
DX: I70.1 Atherosclerosis of renal artery (principal); I10 Essential (primary) hypertension
CPT/HCPCS: 93975

== ENCOUNTER → 2023-07-09 | Outpatient (CLI) | payer MEDICARE ==
--- NOTE | 2023-07-10 11:24 | MM ---
Reason for Exam: Screening (asymptomatic). Last mammogram was performed 3 year(s) and 11 month(s) ago. Patient History: Menarche at age 16. First Full-Term at age 28. Postmenopausal. Mother had breast cancer, age 73. Risk Values: Katlyn 5 year model risk: 3.1%. NCI Lifetime model risk: 8.1%. Prior Study Comparison: 07/07/2017 Right Diagnostic Mammogram, [facility]. 07/16/2018 Bilateral Screening Mammogram, [facility]. 07/21/2019 Bilateral Screening Mammogram, [facility]. Tissue Density: The breast tissue is heterogeneously dense. This may lower the sensitivity of mammography. Findings: Analyzed By CAD. There is no suspicious group of microcalcifications or new suspicious mass in either breast. Overall Assessment: Benign, BI-RAD 2 Management: Screening Mammogram of both breasts in 1 year. . Patient should continue monthly self-breast exams. A clinical breast exam by your physician is recommended on an annual basis. This exam should not preclude additional follow-up of suspicious palpable abnormalities. Note on Katlyn scores and lifetime risk: 1. A Katlyn score greater than 3% is considered moderate risk. If this is the case, consider specialist referral to assess eligibility for a risk reducing agent. 2. If overall lifetime risk for the development of breast cancer is 20% or higher, the patient may qualify for future screening with alternating mammogram and breast MRI. Electronically signed and approved by: Samson Esteban M.D. Radiologis
== END | disposition home or self-care (01) ==
LOC: RADMAMWWP 12:25
PROVIDERS: ATTEND Student in an Organized Health Care Education/Training Program
DX: Z12.31 Encounter for screening mammogram for malignant neoplasm of breast (principal); M81.0 Age-related osteoporosis without current pathological fracture; Z80.3 Family history of malignant neoplasm of breast; Z78.0 Asymptomatic menopausal state
CPT/HCPCS: 77063; 77067; 77080

== ENCOUNTER → 2024-08-18 | Outpatient (CLI) | payer MEDICARE ==
--- NOTE | 2024-08-18 14:57 | MM ---
Reason for Exam: Screening (asymptomatic). Last mammogram was performed 1 year(s) and 2 month(s) ago. Patient History: Menarche at age 16. First Full-Term at age 28. Postmenopausal. Mother had breast cancer, age 73. Risk Values: Katlyn 5 year model risk: 3.2%. NCI Lifetime model risk: 7.7%. Prior Study Comparison: 07/16/2018 Bilateral Screening Mammogram, [facility]. 07/21/2019 Bilateral Screening Mammogram, [facility]. 07/09/2023 Bilateral MG 3D screening mammo w/cad, [facility]. Tissue Density: The breasts are heterogeneously dense, which may obscure small masses. Findings: Analyzed By CAD. Right breast: There is no suspicious group of microcalcifications or new suspicious mass. Left breast: There is no suspicious group of microcalcifications or new suspicious mass. Overall Assessment: Negative, BI-RAD 1 Management: Screening Mammogram of both breasts in [address] [facility] will attempt to contact patient to return for supplemental views and ultrasound if indicated. Patient should continue monthly self-breast exams. A clinical breast exam by your physician is recommended on an annual basis. This exam should not preclude additional follow-up of suspicious palpable abnormalities. Note on Katlyn scores and lifetime risk: 1. A Katlyn score greater than 3% is considered moderate risk. If this is the case, consider specialist referral to assess eligibility for a risk reducing agent. 2. If overall lifetime risk for the development of breast cancer is 20% or higher, the patient may qualify for future screening with alternating mammogram and breast MRI. [facility], , 08/18/2024 2:54 PM. Electronically signed and approved by: Wayne Mcguire DO
== END | disposition home or self-care (01) ==
LOC: RADMAMWWP 13:46
PROVIDERS: ATTEND Family Medicine
DX: Z12.31 Encounter for screening mammogram for malignant neoplasm of breast (principal); R92.333 Mammographic heterogeneous density, bilateral breasts; Z78.0 Asymptomatic menopausal state; Z80.3 Family history of malignant neoplasm of breast
CPT/HCPCS: 77063; 77067